=== PATIENT | female | born 1985 | race Caucasian/White ===

== ENCOUNTER 2022-08-21 14:13 | Inpatient (IN) ==
[2022-08-21 15:32] LABS: Bilirubin,Urine Negative (Negative); Blood,Urine Negative (Negative); Clarity,Urine Clear (Clear); Color,Urine Yellow (Yellow); Glucose,Urine (UA) Normal (Normal); Ketones,Urine 20 mg/dL (Negative); Leukocyte Esterase,Urine Negative (Negative); Nitrite,Urine Negative (Negative); Protein,Urine Trace mg/dL (Neg-Trace); Specific Gravity,Urine 1.028 (1.010-1.025); Urobilinogen,Urine Normal (Normal)
[2022-08-21 15:34] LABS: Basophils % 0.4 %; Eosinophils % 0.2 %; Hematocrit 38.7 % (35.3-44.9); Hemoglobin 13.1 g/dL (11.5-15.4); Immature Granulocytes % 0.3 % (0-4); Lymphocytes # 2.3 K/mcL (0.6-4.6); Lymphocytes % 20.3 %; Mean Corpuscular HGB Conc 33.9 g/dL (31.6-35.5); Mean Corpuscular Hemoglobin 29.6 pg (28.0-33.3); Mean Corpuscular Volume 87.6 fL (83.0-100.0); Monocytes % 9.2 %; Neutrophils # 7.8 K/mcL (1.6-8.9); Platelet Count 305 K/mcL (140-400); Red Blood Count 4.42 M/mcL (3.82-4.97); Red Cell Distribution Width 12.7 % (11.5-14.5); Segmented Neutrophils % 69.6 %; White Blood Count 11.3 K/mcL (4.3-11.1)
[2022-08-21 15:55] LABS: Acetaminophen < 10 mcg/mL (10-20); BUN/Creatinine Ratio 17 (6-26); Blood Urea Nitrogen 14 mg/dL (6-20); Calcium 10.2 mg/dL (8.6-10.3); Carbon Dioxide 25 mEq/L (23-29); Chloride 104 mEq/L (98-107); Chol/HDL Ratio 2.5 (0-4.9); Cholesterol 145 mg/dL (< 200); Ethanol < 10 mg/dL (Less than 10); Glucose 122 mg/dL (70-105); HDL Cholesterol 57 mg/dL (40-59); LDL Cholesterol,Calculated 73 mg/dL (< 100); Osmolality,Calculated 286 (280-300); Potassium 3.7 mEq/L (3.5-5.1); Salicylate < 2.5 mg/dL (15.0-30.0); Sodium 137 mEq/L (136-145); Triglycerides 76 mg/dL (< 150)
[2022-08-21 15:56] LABS: Amphetamine Screen,Urine Negative ng/mL (Cutoff=1000); Barbiturate Screen,Urine Negative ng/mL (Cutoff=200); Benzodiazepines Screen,Urine Positive ng/mL (Cutoff=200); Cannabinoid Screen,Urine Positive ng/mL (Cutoff = 50); Cocaine Screen,Urine Negative ng/mL (Cutoff= 300); Opiate Screen,Urine Negative ng/mL (Cutoff=300); Phencyclidine Screen,Urine Negative ng/mL (Cutoff=25)
[2022-08-21 19:20] LABS: Estimated Average Glucose 108 mg/dl; Hemoglobin A1C 5.4 %
[2022-08-21] MEDS ORDERED: Ibuprofen 600 MG TABLET PO ONE (21:25)
[2022-08-22] MEDS ORDERED: hydrOXYzine pamoate 25 MG CAPSULE PO ONE (06:20)
[2022-08-22] MEDS: Nicotine 2 MG GUM BC PRN ×4 (08:45→20:55)
[2022-08-22 12:15] LABS: Influenza A PCR Negative (Negative); Influenza B PCR Negative (Negative); Resp. Syncytial Virus PCR Negative (Negative); SARS-CoV-2 by PCR (In House) Negative (Negative)
[2022-08-22] MEDS ORDERED: Haloperidol Lactate 5 MG/ML VIAL IM PRN (13:26)
[2022-08-22] MEDS ORDERED: *HR* LORazepam 2 MG/ML VIAL IM PRN (13:26)
[2022-08-22] MEDS ORDERED: MOM Conc 10 ML UD.LIQ PO PRN (16:47)
[2022-08-22] MEDS ORDERED: Mag Hydrox/Al Hydrox/Simeth 30 ML UDC PO PRN (16:47)
[2022-08-22] MEDS: hydrOXYzine pamoate 25 MG CAPSULE PO PRN (23:30)
[2022-08-23] MEDS: Nicotine 2 MG GUM BC PRN ×5 (04:05→21:09)
[2022-08-23 14:34] LABS: Thyroid Stimulating Hormone 1.184 mcIU/mL (0.340-5.600)
[2022-08-23] MEDS ORDERED: chlorproMAZINE 25 MG TABLET PO SCH ×2 (18:37→21:00)
[2022-08-24] MEDS: Nicotine 2 MG GUM BC PRN ×7 (01:16→22:41)
[2022-08-24] MEDS: chlorproMAZINE 25 MG TABLET PO SCH (20:53)
[2022-08-24] MEDS: Ibuprofen 400 MG TABLET PO PRN (23:37)
[2022-08-25] MEDS: *HR* LORazepam 1 MG TABLET PO PRN
[2022-08-25] MEDS: haloperidoL 5 MG TABLET PO PRN
[2022-08-25] MEDS: Nicotine 2 MG GUM BC PRN ×5 (09:18→21:35)
[2022-08-25] MEDS: Acetaminophen 325 MG TABLET PO PRN (20:17)
[2022-08-25] MEDS: chlorproMAZINE 25 MG TABLET PO SCH (21:09)
[2022-08-26] MEDS: Nicotine 2 MG GUM BC PRN ×6 (01:13→21:36)
[2022-08-26] MEDS: hydrOXYzine pamoate 25 MG CAPSULE PO PRN (04:41)
[2022-08-26] MEDS: Ibuprofen 400 MG TABLET PO PRN ×2 (05:30→19:47)
[2022-08-26] MEDS: chlorproMAZINE 25 MG TABLET PO SCH (21:36)
[2022-08-26] MEDS: haloperidoL 5 MG TABLET PO PRN (23:48)
[2022-08-26] MEDS: *HR* LORazepam 1 MG TABLET PO PRN (23:48)
[2022-08-27] MEDS: Nicotine 2 MG GUM BC PRN ×6 (00:19→22:37)
[2022-08-27] MEDS: Artificial Tears SOLN 15 ML BOTTLE BOTH EYES SCH ×3 (11:48→20:35)
[2022-08-27] MEDS: chlorproMAZINE 25 MG TABLET PO SCH (20:35)
[2022-08-27] MEDS: *HR* LORazepam 1 MG TABLET PO PRN (23:15)
[2022-08-27] MEDS: haloperidoL 5 MG TABLET PO PRN (23:15)
[2022-08-27] MEDS: Ibuprofen 400 MG TABLET PO PRN (23:28)
[2022-08-28] MEDS: Artificial Tears SOLN 15 ML BOTTLE BOTH EYES SCH ×4 (08:02→20:40)
[2022-08-28] MEDS: Nicotine 2 MG GUM BC PRN ×5 (08:40→20:41)
[2022-08-28] MEDS: hydrOXYzine pamoate 25 MG CAPSULE PO PRN (21:57)
[2022-08-29] MEDS: Acetaminophen 325 MG TABLET PO PRN ×2 (00:20→07:30)
[2022-08-29] MEDS: Nicotine 2 MG GUM BC PRN ×4 (00:50→10:56)
[2022-08-29] MEDS: Ibuprofen 400 MG TABLET PO PRN ×2 (03:00→10:54)
[2022-08-29] MEDS: haloperidoL 5 MG TABLET PO PRN (03:15)
[2022-08-29] MEDS: *HR* LORazepam 1 MG TABLET PO PRN (03:15)
[2022-08-29] MEDS: Artificial Tears SOLN 15 ML BOTTLE BOTH EYES SCH ×4 (08:30→21:51)
[2022-08-29] MEDS: hydrOXYzine pamoate 25 MG CAPSULE PO PRN ×2 (10:54→21:51)
[2022-08-29] MEDS: Nicotine 21 MG PATCH.TD24 TD SCH (13:20)
[2022-08-29] MEDS: Lithium Carbonate 300 MG CAPSULE PO SCH (21:51)
[2022-08-30] MEDS: Ibuprofen 400 MG TABLET PO PRN (03:07)
[2022-08-30] MEDS: Artificial Tears SOLN 15 ML BOTTLE BOTH EYES SCH ×4 (07:43→21:55)
[2022-08-30] MEDS: Nicotine 21 MG PATCH.TD24 TD SCH (07:43)
[2022-08-30] MEDS: Melatonin 3 MG TABLET PO PRN (21:49)
[2022-08-30] MEDS ORDERED: polyethylene glycoL 3350 17 GM POWD.PACK PO PRN (21:49)
[2022-08-30] MEDS: Lithium Carbonate 300 MG CAPSULE PO SCH (21:49)
[2022-08-30] MEDS: hydrOXYzine pamoate 25 MG CAPSULE PO PRN (21:49)
[2022-08-30] MEDS ORDERED: Milk and Molasses Enema 200 ML RC ONE (21:53)
[2022-08-30] MEDS: Sennosides/Docusate Sodium TABLET PO SCH (22:23)
[2022-08-31] MEDS: Acetaminophen 325 MG TABLET PO PRN ×2 (06:24→13:20)
[2022-08-31] MEDS: Nicotine 21 MG PATCH.TD24 TD SCH (07:41)
[2022-08-31] MEDS: Ibuprofen 400 MG TABLET PO PRN (08:00)
[2022-08-31] MEDS: Sennosides/Docusate Sodium TABLET PO SCH ×2 (08:56→21:06)
[2022-08-31] MEDS: Artificial Tears SOLN 15 ML BOTTLE BOTH EYES SCH ×4 (08:56→22:07)
[2022-08-31] MEDS ORDERED: GI Cocktail 40 ML EACH PO ONE (14:18)
[2022-08-31] MEDS: hydrOXYzine pamoate 25 MG CAPSULE PO PRN (18:32)
[2022-08-31] MEDS ORDERED: *HR* OxyCODONE/APAP 5/325 TABLET PO PRN (18:55)
[2022-08-31] MEDS: Lithium Carbonate 300 MG CAPSULE PO SCH (21:06)
[2022-08-31] MEDS: Melatonin 3 MG TABLET PO PRN (21:07)
[2022-09-01] MEDS: hydrOXYzine pamoate 25 MG CAPSULE PO PRN (01:27)
[2022-09-01] MEDS: Acetaminophen 325 MG TABLET PO PRN (01:27)
[2022-09-01] MEDS: Sennosides/Docusate Sodium TABLET PO SCH (08:47)
[2022-09-01] MEDS: Artificial Tears SOLN 15 ML BOTTLE BOTH EYES SCH ×2 (08:47→12:34)
[2022-09-01] MEDS: Nicotine 21 MG PATCH.TD24 TD SCH (08:47)
[2022-09-01 09:32] VITALS: BP 116/73; PULSE 86; TEMP 98.6; O2SAT 96
== END 2022-09-01 14:45 | disposition home or self-care (01) | DRG 753 ==
LOC: EMEROOARM 14:13 → 1ANU 08-22 13:34
PROVIDERS: ADMIT Psychiatry & Neurology Psychiatry; ATTEND Psychiatry & Neurology Psychiatry